=== PATIENT | male | born 1985 | race Caucasian/White ===

== ENCOUNTER → 2017-02-22 09:34 | Outpatient (CLI) | payer MEDICAID | END | disposition home or self-care (01) | LOC: D.CN 09:34 | DX: R06.2 Wheezing (principal); G50.0 Trigeminal neuralgia ==

== ENCOUNTER 2019-02-28 00:39 | Emergency (ER) | payer MEDICAID ==
[~2019-02-28] VITALS: Ht 185.4 cm; Wt 111.1 kg
[2019-02-28 00:44] VITALS: Ht 185.4 cm; Wt 111.1 kg
[2019-02-28] MEDS ORDERED: TEGRETOL XR200 M1 PO (00:45)
[2019-02-28] MEDS ORDERED: LYRICA50 MG PO (00:45)
[2019-02-28] MEDS ORDERED: BREO ELLIPTA 21 EACH (00:46)
[2019-02-28] MEDS ORDERED: ALBUTEROL SULF8.5 GM INH (00:46)
[2019-02-28 01:00] LABS: BASOPHILS 0.2 % (0-2); EOSINOPHILS 4.2 % (0-7); HEMATOCRIT 51.4 % (42.0-54.0); HEMOGLOBIN 19.1 g/dL (13.5-17.5); IMMATURE GRANULOCYTES 0.3 % (0-5); LYMPHOCYTES 46.5 % (15-50); MCH 32.4 pg (26.0-34.0); MCHC 37.2 g/dL (31.0-37.0); MCV 87.3 fL (80.0-100.0); MEAN PLATELET VOLUME 10.2 fL (7.4-10.4); MONOCYTES 11.4 % (2-11); NEUTROPHILS 37.4 % (40-80); PLATELET COUNT 193 10x3/uL (130-400); RBC 5.89 10x6/uL (4.20-6.10); RDW 13.8 % (11.5-14.5); WBC 10.4 10x3/uL (4.8-10.8)
[2019-02-28 01:09] LABS: APTT 26.4 SECONDS (22.8-39.4); INR 0.98 (0.85-1.17); PROTIME 12.5 SECONDS (11.6-15.0)
[2019-02-28] MEDS ORDERED: TYLENOL W/CODEI1 TAB PO (01:13)
[2019-02-28 01:17] LABS: ALBUMIN 3.9 g/dL (3.4-5.0); ALKALINE PHOSPHATASE 81 U/L (46-116); ALT (SGPT) 75 U/L (10-68); CALC OSMOLALITY 276 mosm/kg (275-300); CALCIUM 8.6 mg/dL (8.5-10.1); CARBON DIOXIDE 28.2 mmol/L (21.0-32.0); CHLORIDE - SERUM 103 mmol/L (98-107); CREATININE - SERUM 0.9 mg/dL (0.6-1.3); GLUCOSE 87 mg/dL (74-106); POTASSIUM - SERUM 3.9 mmol/L (3.5-5.1); SODIUM 140 mmol/L (136-145); UREA NITROGEN 9 mg/dL (7-18); eGFR NON AFRICAN AMERICAN > 90 mL/min (90-120)
[2019-02-28 01:27] LABS: CKMB 0.4 U/L (0.0-3.6); CREATINE KINASE 102 UL (21-232); MAGNESIUM - SERUM 1.9 mg/dL (1.8-2.4)
[2019-02-28 01:29] LABS: TROPONIN-I < 0.017 ng/mL (0.000-0.060)
[2019-02-28 02:15] VITALS: BP 112/67
== END 2019-02-28 02:16 | disposition home or self-care (01) ==
LOC: D.ER 00:39
PROVIDERS: Emergency Medicine
DX: R07.89 Other chest pain (principal); F17.200 Nicotine dependence, unspecified, uncomplicated